=== PATIENT | female | born 1960 | race African-American/Black ===

== ENCOUNTER 2016-09-26 14:49 | Emergency (ER) | payer MEDICAID ==
[~2016-09-26] VITALS: Ht 157.5 cm; Wt 77.0 kg
[~2016-09-26 14:49] MED LIST: BENA20TA3 PO; ZOLP10TA2 PO
[2016-09-26 17:28] VITALS: BP 114/74
[2016-09-26] MEDS ORDERED: KETOROLAC 30MG/ML VIAL IM ONE (17:30)
== END 2016-09-26 18:41 | disposition home or self-care (01) ==
LOC: ER 18:38
DX: S39.012A Strain of muscle, fascia and tendon of lower back, initial encounter (principal); X58.XXXA Exposure to other specified factors, initial encounter; Y93.9 Activity, unspecified; Y92.9 Unspecified place or not applicable; I10 Essential (primary) hypertension; Z88.0 Allergy status to penicillin; Z88.2 Allergy status to sulfonamides; Z90.49 Acquired absence of other specified parts of digestive tract
CPT/HCPCS: 96372; 99283; J1885

== ENCOUNTER 2017-01-08 20:59 | Emergency (ER) | payer MEDICAID ==
[2017-01-09] MEDS ORDERED: AMLO10TA80 PO (14:52)
== END 2017-01-09 00:31 | disposition left against medical advice (07) ==
LOC: ER 23:48
DX: R03.0 Elevated blood-pressure reading, without diagnosis of hypertension (principal); R10.0 Acute abdomen; R11.2 Nausea with vomiting, unspecified; Z53.21 Procedure and treatment not carried out due to patient leaving prior to being seen by health care provider

== ENCOUNTER 2017-01-09 14:25 | Emergency (ER) | payer MEDICAID ==
[~2017-01-09] VITALS: Ht 157.5 cm; Wt 75.0 kg
[2017-01-09] MEDS ORDERED: AMLO10TA80 PO (14:52)
[2017-01-09] MEDS ORDERED: IBUPROFEN 600MG TABLET PO ONE (18:30)
[2017-01-09 18:51] LABS: CLARITY URINE CLEAR (CLEAR); COLOR URINE YELLOW (YELLOW); GLUCOSE URINE NEGATIVE (NEGATIVE); KETONES URINE NEGATIVE (NEGATIVE); LEUKOCYTE ESTERASE URINE 3+ (NEGATIVE); NITRITE URINE NEGATIVE (NEGATIVE); OCCULT BLOOD URINE TRACE (NEGATIVE); PH URINE 5.5 (4.5-8.0); PROTEIN URINE NEGATIVE (NEGATIVE); SPECIFIC GRAVITY URINE 1.006 (1.005-1.030); UROBILINOGEN URINE 0.2 E.U./dL (0.2-1.0)
[2017-01-09 18:55] LABS: BASOPHILS % 0.4 % (0.0-2.0); HEMOGLOBIN. 12.6 g/dL (12.0-16.0); LYMPHOCYTES % 26.8 % (20.0-50.0); MEAN CORPUSCULAR HEMOGLOBIN 31.5 pg (28.0-32.0); MEAN CORPUSCULAR VOLUME 92.9 fL (81.0-99.0); MEAN PLATELET VOLUME 9.3 fl (7.4-10.4); NEUTROPHILS % 64.8 % (40.0-76.0); PLATELET 196 x1000/uL (130-400); RED BLOOD CELL COUNT 3.98 mill/uL (4.2-5.4); RED CELL DISTRIBUTION WIDTH 13.5 % (11.6-14.6)
[2017-01-09 19:01] LABS: CHLORIDE 107 mEq/L (98-107)
[2017-01-09 19:07] LABS: CARBON DIOXIDE 30 mEq/L (21-32)
[2017-01-09 21:13] VITALS: BP 145/82
== END 2017-01-09 21:16 | disposition home or self-care (01) ==
LOC: ER 14:25
DX: R51 Headache (principal); I10 Essential (primary) hypertension; N39.0 Urinary tract infection, site not specified; Z88.0 Allergy status to penicillin; Z88.2 Allergy status to sulfonamides; Z90.89 Acquired absence of other organs
CPT/HCPCS: 36415; 80053; 81001; 85025; 99284; Z7610

== ENCOUNTER 2018-10-22 20:13 | Emergency (ER) | payer MEDICAID ==
[~2018-10-22] VITALS: Ht 157.5 cm; Wt 74.0 kg
[~2018-10-22 20:13] MED LIST changes: +AMLO10TA80 PO; +BENA20TA10 PO; -BENA20TA3 PO
[2018-10-23 01:31] VITALS: BP 138/81
== END 2018-10-23 01:34 | disposition home or self-care (01) ==
LOC: ER 20:13
DX: R09.82 Postnasal drip (principal); I10 Essential (primary) hypertension; Z90.49 Acquired absence of other specified parts of digestive tract; Z88.0 Allergy status to penicillin; Z88.2 Allergy status to sulfonamides
CPT/HCPCS: 87430; 99283

== ENCOUNTER 2018-11-05 11:52 | Emergency (ER) | payer MEDICAID ==
[~2018-11-05] VITALS: Ht 157.5 cm; Wt 100.0 kg
[2018-11-05 17:58] LABS: CHLORIDE 108 mEq/L (98-107)
[2018-11-05 18:27] LABS: CLARITY URINE CLEAR (CLEAR); COLOR URINE YELLOW (YELLOW); KETONES URINE NEGATIVE (NEGATIVE); LEUKOCYTE ESTERASE URINE TRACE (NEGATIVE); NITRITE URINE NEGATIVE (NEGATIVE); OCCULT BLOOD URINE NEGATIVE (NEGATIVE); PH URINE 5.5 (4.5-8.0); PROTEIN URINE NEGATIVE (NEGATIVE); SPECIFIC GRAVITY URINE 1.005 (1.005-1.030); UROBILINOGEN URINE 0.2 E.U./dL (0.2-1.0)
[2018-11-05 18:58] VITALS: BP 136/79
== END 2018-11-05 19:01 | disposition home or self-care (01) ==
LOC: ER 11:52
DX: R10.11 Right upper quadrant pain (principal); I10 Essential (primary) hypertension; Z86.73 Personal history of transient ischemic attack (TIA), and cerebral infarction without residual deficits; Z90.49 Acquired absence of other specified parts of digestive tract; Z98.890 Other specified postprocedural states; Z88.0 Allergy status to penicillin; Z88.2 Allergy status to sulfonamides; Z79.899 Other long term (current) drug therapy; Z87.09 Personal history of other diseases of the respiratory system
CPT/HCPCS: 36415; 76705; 99284

== ENCOUNTER 2019-06-14 15:45 | Emergency (ER) | payer MEDICAID ==
[~2019-06-14] VITALS: Ht 157.5 cm; Wt 75.0 kg
[2019-06-14 20:43] VITALS: BP 134/74
== END 2019-06-14 20:43 | disposition home or self-care (01) ==
LOC: ER 15:45
DX: J11.1 Influenza due to unidentified influenza virus with other respiratory manifestations (principal); I10 Essential (primary) hypertension; Z98.1 Arthrodesis status; Z90.49 Acquired absence of other specified parts of digestive tract; Z88.0 Allergy status to penicillin; Z88.2 Allergy status to sulfonamides
CPT/HCPCS: 99283

== ENCOUNTER 2019-11-21 13:25 | Emergency (ER) | payer MEDICAID ==
[~2019-11-21] VITALS: Ht 157.5 cm; Wt 79.0 kg
[2019-11-21] MEDS ORDERED: IBUPROFEN 600MG TABLET PO ONE (14:15)
[2019-11-21 14:31] LABS: CLARITY URINE CLEAR (CLEAR); COLOR URINE YELLOW (YELLOW); KETONES URINE NEGATIVE (NEGATIVE); LEUKOCYTE ESTERASE URINE TRACE (NEGATIVE); NITRITE URINE NEGATIVE (NEGATIVE); OCCULT BLOOD URINE NEGATIVE (NEGATIVE); PROTEIN URINE NEGATIVE (NEGATIVE); SPECIFIC GRAVITY URINE 1.017 (1.005-1.030); UROBILINOGEN URINE 0.2 E.U./dL (0.2-1.0)
[2019-11-21 15:40] VITALS: BP 141/84
== END 2019-11-21 15:41 | disposition home or self-care (01) ==
LOC: ER 13:25
DX: R30.0 Dysuria (principal); Z88.0 Allergy status to penicillin; Z88.2 Allergy status to sulfonamides; Z79.899 Other long term (current) drug therapy
CPT/HCPCS: 81003; 87077; 99283

== ENCOUNTER 2021-06-22 19:47 | Emergency (ER) | payer MEDICAID ==
[~2021-06-22] VITALS: Ht 157.5 cm; Wt 71.0 kg
[2021-06-22] MEDS ORDERED: ACETAMINOPHEN 325MG TABLET PO ONE (20:15)
[2021-06-22] MEDS ORDERED: LIDO700A15 TP (23:32)
[2021-06-22] MEDS ORDERED: ACET-2708 MT (23:32)
[2021-06-22] MEDS ORDERED: BACL-141 MT (23:32)
[2021-06-23] VITALS: BP 105/72
== END 2021-06-23 00:18 | disposition home or self-care (01) ==
LOC: ER 20:17
DX: M25.511 Pain in right shoulder (principal); I10 Essential (primary) hypertension; Z88.0 Allergy status to penicillin; Z88.2 Allergy status to sulfonamides; Z98.890 Other specified postprocedural states; Z96.659 Presence of unspecified artificial knee joint; W01.0XXA Fall on same level from slipping, tripping and stumbling without subsequent striking against object, initial encounter; Y93.89 Activity, other specified; Y92.012 Bathroom of single-family (private) house as the place of occurrence of the external cause
CPT/HCPCS: 71045; 73030; 99284; L3670